=== PATIENT | female | born 1955 | race Caucasian/White ===

== ENCOUNTER → 2016-09-05 | Outpatient (CLI) | payer BC ==
[~2016-09-05] MED LIST: CARAFATE1 G; CEFTIN PO; COMBIVENT INH14.7 GM INH; LIPITOR PO; LORTAB 7.5-5001 TAB PO; METFORMIN HCL500 M1 PO; METFORMIN PO; PREDNISONE PO; PROTONIX PO; SPIRIVA18 MCG INH; SYMBICORT INH; SYNTHROID PO; SYNTHROID125 PO; WELLBUTRIN PO; ZOCOR PO; ZYRTEC PO
--- NOTE | ~2016-09-05 | US85 ---
[facility] A Service of [facility] & [facility] RADIOLOGY TEXT RESULTS PATIENT: IRENE PEREZ LOCATION: CNIV : 57 UNIT #: [id number] AGE: [address]: Aiden Buchanan MD SEX: F ORDER DR: [id number] [facility] [address] [place], [place] [address] [id number] O MR#: [id number] Acc #: [id number] NAME: IRENE PEREZ : 1955 SEX: F STUDY DATE/TIME: 09/05/2016 15:15 UNIT: CNIV ROOM: STUDY DESCRIPTION: [facility] [employer] [facility] Attending Physician: Aiden Buchanan Jr., M.D. Ordering Physician: Aiden Buchanan Jr., M.D. Primary Care Physician: Aiden Buchanan Jr., M.D. MEDICAL IMAGING REPORT This report is preliminary unless electronic signature is present EXAM Right lower extremity venous duplex 09/05/2016 HISTORY Right lower extremity pain for 5 weeks. Evaluate for deep vein thrombosis. TECHNIQUE Venous ultrasound examination of the right lower extremity was performed using grayscale, spectral Doppler and color flow Doppler imaging. FINDINGS The examination is negative. There is no evidence of right lower extremity deep venous thrombus from the groin to the lower calf. Visualized greater saphenous vein is also patent. IMPRESSION Negative examination. No evidence of right lower extremity deep venous thrombosis. Dictated by... All Gonzalez M.D. THIS IS AN ELECTRONICALLY VERIFIED REPORT All Gonzalez M.D. at 09/05/2016 5:14 PM Leonel TD: 09/05/2016 16:06 JOB #: [id number] MEDICAL IMAGING REPORT Page 1 of 1 COPY
== END | disposition home or self-care (01) ==
LOC: CNIV 14:50
DX: M79.604 Pain in right leg (principal)
CPT/HCPCS: 93971

== ENCOUNTER 2016-09-08 10:28 | Emergency (ER) | payer BC ==
--- NOTE | ~2016-09-08 | CR253 ---
[facility] A Service of [facility] & [facility] RADIOLOGY TEXT RESULTS PATIENT: IRENE PEREZ LOCATION: [facility] : 57 UNIT #: [id number] AGE: [address]: Jose Brannon MD SEX: F ORDER DR: [id number] [id number] [place], [place] [address] [id number] E MR#: [id number] Acc #: [id number] NAME: IRENE PEREZ : 1955 SEX: F STUDY DATE/TIME: 09/08/2016 11:56 UNIT: [facility] ROOM: STUDY DESCRIPTION: CR Tibia and Fibula 2 Views Rt Attending Physician: Jose Brannon Ordering Physician: Er [facility] Primary Care Physician: Primary Care Physician No MEDICAL IMAGING REPORT This report is preliminary unless electronic signature is present EXAM Right tibia and fibula two views INDICTIONS Right lower leg pain and swelling for 6 weeks. No comparisons. FINDINGS There is no fracture or dislocation. Soft tissue structures are unremarkable. IMPRESSION Negative Dictated by... Arnulfo Christina M.D. THIS IS AN ELECTRONICALLY VERIFIED REPORT Arnulfo Christina M.D. at 09/09/2016 7:51 AM MA[facility] TD: 09/08/2016 15:06 JOB #: [id number] MEDICAL IMAGING REPORT Page 1 of 1 COPY
== END 2016-09-08 12:50 | disposition home or self-care (01) ==
LOC: CED 10:28
DX: M25.561 Pain in right knee (principal); E78.5 Hyperlipidemia, unspecified; K21.9 Gastro-esophageal reflux disease without esophagitis; F17.210 Nicotine dependence, cigarettes, uncomplicated; Z85.850 Personal history of malignant neoplasm of thyroid
CPT/HCPCS: 73590; 99283